=== PATIENT | female | born 1965 | race Caucasian/White ===

== ENCOUNTER 2017-03-01 06:00 | Day surgery (SDC) | payer MEDICARE, MEDICAID ==
[~2017-03-01] VITALS: Ht 162.6 cm; Wt 104.3 kg
[~2017-03-01 06:00] MED LIST: ADULT ASPIRIN E81 MG; ADVAIR DISK2 IN; BUMETANIDE1 MG PO; CLARITIN10 M2 PO; COMBIVENT RESPIMAT IN; FLECAINIDE50 MG PO; LEVOTHYROXIN175 MC1 PO; MONTELUKAST SOD10 MG PO; MULTI VIT PO; OMEGA 3340 MG PO; OMEPRAZOLE20 M2 PO; PRAVASTATIN40 MG PO; SPIRIVA HANDIH18 MCG; TIZANIDINE HCL4 M1 PO; VENLAFAXINE75 M2 PO; ZESTRIL5 M1 PO
[2017-03-01 09:10] VITALS: BP 148/90
== END 2017-03-01 09:26 | disposition home or self-care (01) ==
LOC: ENDO 06:00
PROVIDERS: ATTEND Surgery
PROC: 0DBF8ZX Excision of Right Large Intestine, Via Natural or Artificial Opening Endoscopic, Diagnostic (ICD-10-PCS; principal; 2017-03-01)
DX: Z12.11 Encounter for screening for malignant neoplasm of colon (principal); D12.2 Benign neoplasm of ascending colon; K42.9 Umbilical hernia without obstruction or gangrene; I10 Essential (primary) hypertension; J44.9 Chronic obstructive pulmonary disease, unspecified

== ENCOUNTER 2017-08-10 12:20 | Emergency (ER) | payer MEDICARE, MEDICAID ==
[~2017-08-10] VITALS: Ht 162.6 cm; Wt 105.0 kg
[2017-08-10] MEDS ORDERED: VOLTAREN75 MG PO (13:36)
[2017-08-10 14:23] VITALS: BP 147/81
== END 2017-08-10 14:23 | disposition home or self-care (01) ==
LOC: ED 12:20
DX: M65.4 Radial styloid tenosynovitis [de Quervain] (principal); I10 Essential (primary) hypertension; E11.9 Type 2 diabetes mellitus without complications; J44.9 Chronic obstructive pulmonary disease, unspecified; E07.9 Disorder of thyroid, unspecified; F17.290 Nicotine dependence, other tobacco product, uncomplicated; Z95.1 Presence of aortocoronary bypass graft

== ENCOUNTER → 2018-08-06 | Outpatient (REF) | payer MEDICARE, MEDICAID ==
[~2018-08-06] MED LIST changes: +VOLTAREN75 MG PO
[2018-08-06 10:28] LABS: HEMATOCRIT 43.5 % (37.0-47.0); HEMOGLOBIN 14.2 g/dl (12.0-16.0); IMMATURE GRANULOCYTES 0.4 % (0.0-5.0); MEAN CELL VOLUME 89.5 fL CALC (80.0-100.0); MEAN CORPUSCULAR HGB 29.2 pG CALC (26.0-32.0); MEAN CORPUSCULAR HGB CONC 32.6 g/L CALC (32.0-36.0); NEUT# 3.02 thou/uL (2.00-7.15); RED BLOOD COUNT 4.86 mill/uL (4.20-5.60); RED CELL DISTRI WIDTH 13.1 % (11.5-15.5)
[2018-08-06 10:41] LABS: ALBUMIN 4.3 g/dL (3.2-5.0); ALKALINE PHOSPHATASE 75 u/l (38-126); ANION GAP 14 (6-22 (CALC)); BILIRUBIN, TOTAL 0.4 mg/dL (0.0-1.4); BUN 18 mg/dL (7-17); BUN/CREATININE RATIO 25 (12-20 (CALC)); CARBON DIOXIDE 27 mmol/l (22-30); CHLORIDE 102 mmol/l (95-108); CREATININE 0.7 mg/dL (0.5-1.0); GFR > 60 ML/MIN (>=60 (CALC)); GFR FOR AFR.AMER. > 60 ML/MIN (>=60 (CALC)); POTASSIUM 4.3 mmol/l (3.5-5.1); SGOT/AST 37 u/l (14-36); SODIUM 140 mmol/l (137-146); TOTAL PROTEIN 6.9 g/dL (6.3-8.2)
== END | disposition home or self-care (01) ==
LOC: LAB 08:47
PROVIDERS: ATTEND Internal Medicine
DX: E11.69 Type 2 diabetes mellitus with other specified complication (principal); E78.2 Mixed hyperlipidemia; R74.0 Nonspecific elevation of levels of transaminase and lactic acid dehydrogenase [LDH]

== ENCOUNTER 2020-03-08 13:46 | Emergency (ER) | payer MEDICARE, MEDICAID ==
[~2020-03-08] VITALS: Ht 162.6 cm; Wt 115.0 kg
[2020-03-08] MEDS ORDERED: [UNRECOGNIZED DRUG - OTHER] PO (15:05)
[2020-03-08] MEDS ORDERED: LEVOTHYROXIN137 MCG PO (15:06)
[2020-03-08] MEDS ORDERED: LISINOPRIL5 MG PO (15:08)
[2020-03-08 15:13] VITALS: BP 158/78
== END 2020-03-08 15:13 | disposition home or self-care (01) ==
LOC: ED 13:46
DX: S90.31XA Contusion of right foot, initial encounter (principal); E11.9 Type 2 diabetes mellitus without complications; I10 Essential (primary) hypertension; J44.9 Chronic obstructive pulmonary disease, unspecified; W20.8XXA Other cause of strike by thrown, projected or falling object, initial encounter; Y92.009 Unspecified place in unspecified non-institutional (private) residence as the place of occurrence of the external cause; Z95.1 Presence of aortocoronary bypass graft

== ENCOUNTER 2020-12-12 13:31 | Emergency (ER) | payer MEDICARE, MEDICAID ==
[~2020-12-12] VITALS: Ht 162.6 cm; Wt 90.0 kg
[~2020-12-12 13:31] MED LIST changes: +LEVOTHYROXIN137 MCG PO; +LISINOPRIL5 MG PO; +[UNRECOGNIZED DRUG - OTHER] PO
[2020-12-12] MEDS ORDERED: OMEPRAZOLE20 MG PO (14:18)
[2020-12-12] MEDS ORDERED: ASPIRIN81 MG PO (14:19)
[2020-12-12] MEDS ORDERED: STOOL SOFTENER100 M1 PO (14:19)
[2020-12-12] MEDS ORDERED: OMEGA 31000 MG PO (14:21)
[2020-12-12] MEDS ORDERED: HYDROCODONE PO (14:21)
[2020-12-12] MEDS ORDERED: ADVAIR DISK1 INH (14:22)
[2020-12-12] MEDS ORDERED: LORTAB 1010 MG PO (15:22)
[2020-12-12 15:35] VITALS: BP 137/67
== END 2020-12-12 15:40 | disposition home or self-care (01) ==
LOC: ED 13:31
PROC: 2W3RX1Z Immobilization of Left Lower Leg using Splint (ICD-10-PCS; principal; 2020-12-12)
DX: S82.62XA Displaced fracture of lateral malleolus of left fibula, initial encounter for closed fracture (principal); S90.31XA Contusion of right foot, initial encounter; E11.9 Type 2 diabetes mellitus without complications; I10 Essential (primary) hypertension; J44.9 Chronic obstructive pulmonary disease, unspecified; W18.39XA Other fall on same level, initial encounter; Y92.009 Unspecified place in unspecified non-institutional (private) residence as the place of occurrence of the external cause